=== PATIENT | female | born 1965 | race Caucasian/White ===

== ENCOUNTER 2016-11-29 11:15 | Day surgery (SDC) | payer MEDICARE, OTHER ==
[~2016-11-29 11:15] MED LIST: LACTATED RINGERS 1,000 ML IV.SOLN IV ONE; LIDOCAINE HCL/PF 2% 100 MG/5 ML VIAL IJ ONE; PROPOFOL 500 MG/50 ML VIAL IV ONE; SALINE FLUSH 10 ML DISP.SYRIN IVF ONE
--- NOTE | 2016-11-30 11:14 | GI Report ---
REFERRING PHYSICIAN: JOSE Saucedo PROFESSOR OF EARLY CHILDHOOD EDUCATION: Bradley Mcgraw MD PROCEDURE MEDICATION: Propofol as per anesthesia. INDICATIONS: A 50-year-old is referred. This is her first colonoscopy. She does have Down' s syndrome. She does have central obesity. PROCEDURE PERFORMED: Colonoscopy with polypectomy. PROCEDURE: An Olympus video colonoscope was advanced to the rectum and slowly advanced to the cecum. Somewhat of an atonic, redundant colon and it took some maneuvering to finally reach the base of the cecum. The appendiceal orifice and ileocecal valve looked normal. On slow withdrawal, kind of a very atonic, redundant colon. The prep was fair. No obvious intraluminal lesions noted. In the descending colon, again, redundancy. In the sigmoid at about 20 cm, the patient had a 4 mm sessile polyp removed with electrocautery. The remaining part of the sigmoid and rectum were unremarkable. Patient tolerated the procedure well. FINDINGS: 1. Sigmoid polyp removed with electrocautery. 2. A very atonic, redundant colon. RECOMMENDATIONS: 1. Would add Metamucil or fiber. 2. Increase fiber in the diet. 3. Pending the pathology of the polyp, consider re-looking at her colon in 5 years. cc: JOSE Saucedo [facility]IDE HOSPITALBernardo
== END 2016-11-29 11:16 ==
LOC: OPSURG 11:15
PROVIDERS: ATTEND Internal Medicine Gastroenterology
DX: Z12.11 Encounter for screening for malignant neoplasm of colon (principal); D12.5 Benign neoplasm of sigmoid colon; Q90.9 Down syndrome, unspecified; E66.9 Obesity, unspecified
CPT/HCPCS: 88305; J2001; J2704; J7120; 45385; S1016

== ENCOUNTER 2019-05-28 09:31 | Outpatient (CLI) | payer MEDICARE, OTHER | END 2019-05-28 09:36 | LOC: LAB 09:31 | PROVIDERS: ATTEND Nurse Practitioner Family | DX: E03.4 Atrophy of thyroid (acquired) (principal) | CPT/HCPCS: 36415; 84443 ==